=== PATIENT | female | born 1935 | race Caucasian/White ===

== ENCOUNTER 2018-11-22 09:00 | Inpatient (IN) | payer MEDICARE, BC ==
--- NOTE | 2019-05-17 18:40 | HP ---
PREOPERATIVE HISTORY AND PHYSICAL: DATE OF ADMISSION/SURGERY: 05/30/19 DATE OF OFFICE VISIT: 05/17/19 ATTENDING PHYSICIAN: Dr. Eden Arboleda * (DICTATED BY PETRA BEVERLY) PROCEDURE SCHEDULED: Left total knee arthroplasty. CHIEF COMPLAINT: Left knee pain. HISTORY OF PRESENT ILLNESS: Ms. Zimmerman is an 83-year-old female, who has a history of over 4 years of left knee pain. It has become severe and she cannot walk more than a block. She has difficulty with stair climbing, prolonged standing. She has tried rest, anti-inflammatories, physical therapy, and cortisone injections. She has failed conservative management and elects to proceed with surgery. PAST MEDICAL HISTORY: Significant for rheumatoid arthritis, asthma, high cholesterol, osteoarthritis, solitary lung nodule, anxiety. PAST SURGICAL HISTORY: Tubal ligation, appendectomy, vaginal mesh surgery. CURRENT MEDICATIONS: 1. Prednisone four 1 mg tablets once daily. 2. Actemra infusion 400 mg/20 mL IV infusion every 4 weeks. 3. Folic acid 1 mg by mouth daily. 4. [place] 5/325 one to two tablets 3 to 4 times daily for chronic pain. 5. Omeprazole 20 mg p.o. daily as needed for GERD. 6. Hydrochlorothiazide 25 mg one-half tablet by mouth daily. 7. Ramipril 10 mg 1 p.o. q.h.s. 8. Flaxseed oil 1000 mg 1 p.o. daily. 9. Vitamin D 2000 units p.o. daily. 10. Clobetasol propionate cream 0.05% apply twice daily on affected area for no more than 2 weeks. 11. Triamcinolone acetonide cream 0.17% apply thin film twice daily. 12. Ponaris oil to nose as needed. 13. Amlodipine 5 mg 1 p.o. q.h.s. 14. Robitussin with codeine cough syrup as needed. 15. Fish oil supplement daily. 16. Methotrexate 2.5 mg 4 tablets by mouth every Wednesday, taking with 25 mg of Benadryl and famotidine half hour prior to methotrexate dosing. ALLERGIES: DUONEB caused eye itching, facial swelling, and heart palpitations; PENICILLIN with rash; ENBREL, reaction urticaria; HUMIRA, reaction psoriatic rash; PLAQUENIL, reaction urticaria; GABAPENTIN, throat swelling; TIZANIDINE, blurred vision. FAMILY HISTORY: Mother with a history of diabetes and cancer. Father with a history of TB. SOCIAL HISTORY: The patient lives alone. She is retired. She smoked briefly in the 1980s. She does not use alcohol or recreational drugs. REVIEW OF SYSTEMS: She denies recent loss of consciousness, lightheadedness, dizziness, shortness of breath, chest pain, or palpitations. Denies gastrointestinal or genitourinary discomfort. Positive for right shoulder pain and chronic back pain. PHYSICAL EXAMINATION GENERAL: Well-developed, well-nourished 83-year-old female, in no acute distress, alert and oriented x3, pleasant and cooperative. VITAL SIGNS: Height 5 feet 1 inch tall, weight 120. Pulse 56, BP 140/80. HEENT: PERRLA. EOMI. LUNGS: Clear to auscultation without wheeze. HEART: Regular rate and rhythm. No murmur auscultated. ABDOMEN: Nontender, nondistended. Normoactive bowel sounds x4. MUSCULOSKELETAL: Left lower extremity: Her skin is intact without abrasions or open wounds. She has a gvau-sx-asmorhod effusion today with varus deformity. There is tenderness along the medial and lateral joint line. Her motion is limited to 15 degrees to 100 degrees of flexion today with noted patellofemoral crepitus. There is no varus or valgus instability. She has active dorsiflexion of the left ankle. She has full sensation to light touch. She has a 2+ dorsalis pedis pulse. DIAGNOSTIC STUDIES: Studies of the left knee plain films reveal endstage osteoarthritis of the left with knud-ec-onav contact medially. There is osteophyte formation and subchondral sclerosis noted. IMPRESSION: Advanced osteoarthritis, left knee. PLAN: The patient is scheduled to proceed with left total knee arthroplasty on 05/30/[address] Arboleda. She states she has seen Dr. Pierson, who will also follow her postoperatively on 05/16/19 for preoperative medical clearance. She is scheduled to have cortisone injections in her spine done by Dr. Molina in the near future. She will follow up in the office 10 to 14 days postoperatively. Risks and benefits of her procedure were fully discussed by Dr. Arboleda at her office visit today, 05/17/19. All questions were answered. PETRA BEVERLY [id number]/[facility] #: [id number] [facility] CENTERDeborah
[2019-05-29] MEDS ORDERED: Buffered Lidocaine 1% SYRIN* 1 ML/SYRINGE INTRADERM ONE (10:53)
[2019-05-30] MEDS ORDERED: Tranexamic Acid 1,000 MG in NS 0.9% 50 ML* (outpatient use) IV SCH ×2
[2019-05-30] MEDS ORDERED: Gabapentin CAP(*) 300 MG PO ONE (06:00)
[2019-05-30] MEDS ORDERED: celeCOXIB CAP* 100 MG PO ONE (06:00)
[2019-05-30] MEDS ORDERED: Famotidine TAB* 20 MG PO ONE (06:00)
[2019-05-30] MEDS ORDERED: Lactated Ringers 1000 ML Bag* 1,000 ML IV SCH ×2 (06:00→13:00)
[2019-05-30] MEDS ORDERED: Acetaminophen TAB* 325 MG PO ONE (06:00)
[2019-05-30] MEDS ORDERED: Dexamethasone IV* 4 MG/ML 1 ML (4 MG) IV SLOW PU ONE (06:00)
[2019-05-30] MEDS ORDERED: Dexamethasone IV* 4 MG/ML 1 ML (4 MG) ONE (07:37)
[2019-05-30] MEDS ORDERED: Famotidine TAB* 20 MG ONE (07:38)
[2019-05-30] MEDS ORDERED: ceFAZolin 2 GM in NS PREMIX(*) 2 GM/100 ML BAG IVPB ONE (07:38)
[2019-05-30] MEDS ORDERED: celeCOXIB CAP* 100 MG ONE (07:38)
[2019-05-30] MEDS ORDERED: Gabapentin CAP(*) 300 MG ONE (07:38)
[2019-05-30] MEDS ORDERED: Acetaminophen TAB* 325 MG ONE ×2 (07:38→13:31)
[2019-05-30] MEDS ORDERED: Buffered Lidocaine 1% SYRIN* 1 ML/SYRINGE INTRADERM ONE (07:38)
[2019-05-30] MEDS ORDERED: Midazolam* 1 MG/ML 2 ML VIAL (2 MG) ONE (08:03)
[2019-05-30] MEDS ORDERED: fentaNYL* 50 MCG/ML 2 ML VIAL (100 MCG VIAL) ONE ×3 (08:03→14:27)
[2019-05-30] MEDS ORDERED: Propofol* 10 MG/ML 20 ML BTL ONE ×3 (08:03→11:51)
[2019-05-30] MEDS ORDERED: ROPIVACAINE 5 MG/ML 30 ML BTL (0.5%) ONE ×2 (09:02→09:32)
[2019-05-30] MEDS ORDERED: Lidocaine 1% MPF ** 5 ML VIAL ONE (09:32)
[2019-05-30] MEDS ORDERED: Naloxone* 0.4 MG/ML 1 ML VIAL IV PRN (09:36)
[2019-05-30] MEDS ORDERED: DiMENhydriNATE IV* 50 MG/ML VIAL IV PUSH PRN (09:36)
[2019-05-30] MEDS ORDERED: Ketorolac INJ* 30 MG/ML 1 ML VIAL IV PRN (09:36)
[2019-05-30] MEDS ORDERED: HYDROmorphone INJ1* 1 MG/ML SYRINGE IV PRN (09:36)
[2019-05-30] MEDS ORDERED: Acetaminophen TAB* 325 MG PO PRN (09:36)
[2019-05-30] MEDS ORDERED: Lidocaine 2% PF * 5 ML VIAL ONE (11:25)
[2019-05-30] MEDS ORDERED: diPHENhydraMINE IV* 50 MG/ML 1 ml VIAL (BENADRYL) IV PRN (12:56)
[2019-05-30] MEDS ORDERED: Cyclobenzaprine TAB* 10 MG PO PRN (12:56)
[2019-05-30] MEDS ORDERED: Ondansetron INJ* 2 MG/ML VIAL IV PRN (12:56)
[2019-05-30] MEDS ORDERED: Bisacodyl SUPP* 10 MG SUPP PR PRN (12:56)
[2019-05-30] MEDS ORDERED: Polyethylene Glycol 3350* 17 GM PACKET PO PRN (12:56)
[2019-05-30] MEDS ORDERED: Morphine 4 MG/ML VIAL (1 ml) 4 MG/ML VIAL IV PRN (12:56)
[2019-05-30] MEDS ORDERED: diPHENhydraMINE PO* 25 MG PO PRN (12:56)
[2019-05-30] MEDS ORDERED: Magnesium Hydroxide LIQ* 30 ML UDC PO PRN (12:56)
[2019-05-30] MEDS ORDERED: Acetaminophen TAB* 325 MG PO SCH (13:00)
[2019-05-30] MEDS ORDERED: Triamcinolone 0.025% OINT * 15 GM TUBE TOPICAL PRN (13:02)
[2019-05-30] MEDS ORDERED: Pantoprazole TAB * 40 MG TAB PO PRN (13:02)
[2019-05-30] MEDS ORDERED: Hydrocortisone 1% CREAM* 30 GM TUBE TOPICAL PRN (13:02)
[2019-05-30] MEDS ORDERED: oxyCODONE/Acetamin 5/325 MG* TAB PO PRN (13:05)
[2019-05-30] MEDS ORDERED: TOCILIZUMAB IV SCH (13:15)
[2019-05-30] MEDS ORDERED: Ketorolac INJ* 30 MG/ML 1 ML VIAL ONE (13:19)
[2019-05-30] MEDS ORDERED: Morphine 4 MG/ML VIAL (1 ml) 4 MG/ML VIAL ONE (13:35)
[2019-05-30] MEDS ORDERED: oxyCODONE/Acetamin 5/325 MG* TAB ONE ×2 (13:43→13:51)
[2019-05-30] MEDS: oxyCODONE/Acetamin 5/325 MG* TAB PO PRN ×2 (13:44→13:52)
[2019-05-30] MEDS: fentaNYL* 50 MCG/ML 2 ML VIAL (100 MCG VIAL) IV PRN ×2 (14:27→15:08)
[2019-05-30] MEDS ORDERED: Morphine INJ* 2 MG/ML 1 ML SYRINGE (TWO MG - NEW SYRINGE VERSION) IV PRN (15:44)
--- NOTE | 2019-05-30 16:18 | PN ---
Progress Note - Progress Note Date of Service: 05/30/19 - Post-op eval Note: Patient is resting comfortably in bed breathing easily with complaints of SOB, CP, or calf pain. Skin is warm. She is able to dorsi/plantar flex bilaterally with intact sensation and bilateral 2+ DP pulses. Continue PT and OOB with assist. We will monitor and appreciate medicines guidance.
[2019-05-30] MEDS: amLODIPine TAB* 5 MG PO SCH (17:13)
[2019-05-30] MEDS: Ramipril CAP* 10 MG PO SCH (17:13)
[2019-05-30] MEDS: Clindamycin 600 MG IVPREMIX(* 600 MG/50 ML SDV IV SCH (17:14)
[2019-05-30] MEDS: oxyCODONE TAB* 5 MG TAB PO PRN ×2 (17:14→22:16)
--- NOTE | 2019-05-30 18:44 | OP ---
Operative Report - Blank - Operative Report Date of Operation: 05/30/19 Note: Toni CHILDERS 1935 Date of Surgery: 05/30/19 Eden Arboleda MD Collector Of Port: Khai LAMBERT did help throughout the procedure with preparation of the knee, wound retraction, manipulation of the knee, and wound closure. Anesthesiologist: Floresita Kidd MD Anesthesia Type: Spinal Preoperative Diagnosis: Left severe degenerative osteoarthritis of the knee Postoperative Diagnosis: As above Procedure Performed: Left Total Knee Arthroplasty Tourniquet time: 49 minutes Complications: None Specimen: Bone and cartilage from the left knee joint sent to pathology. Hardware Used: Cemented Morris [employer] Nephew total knee hardware was used - For the femur a size 5 left narrow legion posterior stabilized femoral component, for the tibia a size 3 left raymond II tibial baseplate, for the insert a size 9mm 3 -4 posterior stabilized articular polyethylene insert, and for the patella a size 32 3-peg all poly patella. Brief History/Indication: Toni CHILDERS was known in clinic and had a history of severe left knee pain and swelling. She failed conservative treatment with anti- inflammatories, pain pills, intra-articular injections and physical therapy. She elected to undergo left total knee arthroplasty due to continued pain and decreased quality of life. Radiographs showed severe end stage osteoarthritis of the knee with bone on bone contact. Informed consent was obtained from the patient. She understood the risks of surgery included but were not limited to: bleeding, infection, damage to nearby structures, intraoperative fracture, nerve palsy, failure of the hardware, early loosening, knee stiffness or loss of motion, anesthesia complications, stroke, heart attack, blood clot and . She wished to proceed. Intra-Operative Findings: Intraoperatively the patient was noted to have severe loss of cartilage in all 3 compartments of the knee. Description of the Procedure: Toni CHILDERS was identified in the preanesthesia unit. Her left knee was marked as the correct operative side. Informed consent was signed and placed in the chart. The patient was taken to the operating room and placed under anesthesia without complication. A stahl catheter was placed. A tourniquet was placed on the left thigh. The left lower extremity was prepped and draped in the usual sterile fashion. Preoperative time-out was made to correctly identify the patient, side and site. Appropriate intraoperative antibiotics were given within one hour of incision. Tourniquet was inflated. A midline incision was made and carried sharply down to the extensor mechanism. A new 10 blade was used to make a standard medial parapatellar arthrotomy. The patella was subluxed laterally. Electrocautery was used to dissect soft tissue off the superomedial tibia to the midsagittal plane. The knee was flexed up. The anterior horn of the lateral meniscus and the ACL were sharply incised. A drill was used to enter the distal femur. The intramedullary distal femoral cutting guide was pinned on the distal femur. The oscillating saw was used to make the distal femoral cut. The external rotation guide was pinned on the distal femur and the distal femur was sized to a size 5. The size 5 multi-cutting jig was pinned on the distal femur. The oscillating saw was used to make the appropriate 4 chamfer cuts. Next the PCL was completely released. The extramedullary tibial cutting guide was pinned on the proximal tibia and the oscillating saw was used to make the proximal tibial cut perpendicular to the mechanical axis of the tibia. The bone was carefully removed. The knee was brought out into full extension. The spacer block was placed and had excellent fit with the knee in full extension. The medial and lateral ligaments were well balanced. The flexion and extension gaps were well balanced. The knee was flexed up. Lamina web applications developer was placed both medially and laterally. Any remaining meniscus was removed with electrocautery. Curved osteotome was used to remove any posterior osteophytes. The tibial tray and drop shelbi were placed and confirmed a satisfactory tibial cut. The size 5 left narrow femoral trial was impacted onto the distal femur. This trial had excellent fit and stability. The box for the posterior stabilized implant was prepared using a box cut osteotome and a reamer. Next a tibial tray trial and 9 mm insert trial was placed. The knee was taken through a range of motion and had full extension to 130 degrees of flexion. Patellofemoral tracking was satisfactory. The patella was inverted and sized to a size 32. Three peg holes were drilled through the size 32 drill guide. The trial patella was placed and the knee was taken through a range of motion. There was satisfactory patellofemoral tracking. All trials were removed. The tibia was subluxed anteriorly and sized to a size 3. The proximal tibial was prepared with a size 3 keel punch. All bony cut surfaces were irrigated with sterile saline and dried. Final implants were cemented into place starting with the tibia, followed by the femur, and last the patella. A 9 mm insert trial was placed and the knee was brought into full extension. Tourniquet was turned down and the knee was copiously irrigated with sterile saline. Electrocautery was used to obtain meticulous hemostasis. Once the cement had fully cured, the insert trial was removed. Any excess cement was removed from around the hardware and capsule. Final insert chosen was a 9 mm posterior stabilized Raymond II articular insert size 3-4. Stability of the insert was checked and noted to be stable. The extensor mechanism was closed using number 1 vicryls. The rest of the incision was closed in a layered fashion using 0 and 2-0 vicryls. The skin was closed using 3-0 nylon suture. Sterile xeroform, 4x4s and webril were used to cover the incision. Jeremy wrap and cold pack were used to cover the dressings. The patients anesthesia was reversed without difficulty. She was taken to the PACU in stable condition. Intended weight-bearing will be as tolerated.
[2019-05-30] MEDS: Docusate CAP* 100 MG PO SCH (20:50)
[2019-05-30] MEDS: traMADol TAB* 50 MG PO PRN (20:50)
[2019-05-30] MEDS: Magnesium Hydroxide LIQ* 30 ML UDC PO SCH (20:52)
[2019-05-30] MEDS: Acetaminophen TAB* 325 MG PO SCH (22:01)
[2019-05-31] MEDS: oxyCODONE TAB* 5 MG TAB PO PRN ×4 (02:43→17:28)
[2019-05-31] MEDS: Clindamycin 600 MG IVPREMIX(* 600 MG/50 ML SDV IV SCH ×2 (02:45→10:44)
[2019-05-31] MEDS: traMADol TAB* 50 MG PO PRN ×2 (04:49→12:33)
[2019-05-31] MEDS: Acetaminophen TAB* 325 MG PO SCH ×2 (06:20→14:12)
[2019-05-31 07:02] LABS: Hematocrit 35 % (35-47); Mean Platelet Volume 9.3 fL (7.4-10.4); Platelet Count 188 10^3/uL (150-450)
[2019-05-31 07:31] LABS: BUN/Creatinine Ratio 26.8 (8-20); Calcium 9.3 mg/dL (8.6-10.3); EGFR African American 95.1 (>60); EGFR Non-African American 78.6 (>60); Potassium 4.1 mmol/L (3.5-5.0)
--- NOTE | 2019-05-31 08:00 | PN ---
Subjective - Subjective Reason for Note: Progress Note History: Internal medicine/primary care consultation She has tolerated the left total knee arthroplasty. She states the pain is not as bad as her chronic back pain. She has had no problems from the surgery. Active Problems: Active Problems History of total knee arthroplasty (Acute) Z96.659 Coronary atherosclerosis (Chronic) I25.10 Essential hypertension (Chronic) I10 Osteoporosis (Chronic) M81.0 Rheumatoid arthritis (Chronic) M06.9 Rheumatoid lung disease (Chronic) M05.10 Right shoulder pain (Chronic) M25.511 Spinal stenosis (Chronic) M48.00 Current Medications: Current Medications Acetaminophen (Tylenol Tab*) 975 mg PO Q8HR [facility] Last Admin: 05/31/19 06:20 Dose: Not Given Amlodipine Besylate (Norvasc Tab*) 5 mg PO QPM [facility] Last Admin: 05/30/19 17:13 Dose: 5 mg Apixaban (Eliquis*) 2.5 mg PO BID [facility] Bisacodyl (Dulcolax Supp*) 10 mg RI DAILY PRN PRN Reason: constipation Cholecalciferol (Vitamin D Tab*) 2,000 units PO QAM [facility] Cyclobenzaprine HCl (Flexeril Tab*) 5 mg PO TID PRN PRN Reason: SPASMS Diphenhydramine HCl (Benadryl Iv*) 25 mg IV Q6H PRN PRN Reason: itching Diphenhydramine HCl (Benadryl Po*) 25 mg PO Q6H PRN PRN Reason: INSOMNIA Docusate Sodium (Colace Cap*) 100 mg PO BID [facility] Last Admin: 05/30/19 20:50 Dose: 100 mg Famotidine (Pepcid Tab*) 10 mg PO Sa@0830 [facility] Folic Acid (Folvite Tab*) 1 mg PO QAM [facility] Hydrochlorothiazide (Hydrodiuril Tab*) 12.5 mg PO QAM [facility] Hydrocortisone (Hytone Cream 1%*) 1 applic TOPICAL ONCE PRN PRN Reason: ITCHY SKIN RASH Stop: 05/31/19 13:01 Clindamycin HCl/Dextrose (Cleocin 600 Mg Ivpremix(*) Sdv) 600 mg in 50 mls @ 100 mls/hr IV Q8H [facility] Stop: 05/31/19 10:59 Last Admin: 05/31/19 02:45 Dose: 100 mls/hr Lactated Ringer's (Lactated Ringers 1000 Ml Bag*) 1,000 mls @ 100 mls/hr IV PER RATE [facility] Last Admin: 05/31/19 04:48 Dose: 100 mls/hr Tocilizumab 200 mg/Tocilizumab 240 mg/ Sodium Chloride 100 mls @ 100 mls/hr IVPB Q30D [facility] Lactulose (Lactulose*) 30 ml PO Q6H PRN PRN Reason: constipation Magnesium Hydroxide (Milk Of Magnesia Liq*) 30 ml PO BID [facility] Last Admin: 05/30/19 20:52 Dose: 30 ml Magnesium Hydroxide (Milk Of Magnesia Liq*) 30 ml PO Q6H PRN PRN Reason: constipation Methotrexate (Methotrexate Tab*) 10 mg PO SA [facility] Morphine Sulfate (Morphine Inj (Syringe))*) 2 mg IV Q2H PRN PRN Reason: PAIN - SEVERE Ondansetron HCl (Zofran Inj*) 4 mg IV Q6H PRN PRN Reason: nausea Oxycodone HCl (Roxycodone Tab*) 10 mg PO Q4H PRN PRN Reason: breakthru pain Last Admin: 05/31/19 06:23 Dose: 10 mg Oxycodone/Acetaminophen (Percocet 5/325 Tab*) 2 tab PO Q3H PRN PRN Reason: PAIN - MODERATE Oxycodone/Acetaminophen (Percocet 5/325 Tab*) 1 tab PO Q3H PRN PRN Reason: PAIN - MODERATE Pantoprazole Sodium (Protonix Tab*) 40 mg PO DAILY PRN PRN Reason: GERD Polyethylene Glycol/Electrolytes (Miralax*) 17 gm PO DAILY PRN PRN Reason: Constipation Prednisone (Deltasone Tab*) 4 mg PO QAM [facility] Ramipril (Altace Cap*) 10 mg PO QPM [facility] Last Admin: 05/30/19 17:13 Dose: 10 mg Tramadol HCl (Ultram*) 50 mg PO Q6H PRN PRN Reason: PAIN - MILD Last Admin: 05/31/19 04:49 Dose: 50 mg Triamcinolone Acetonide (Triamcinolone 0.025% Oint *) 1 applic TOPICAL DAILY PRN PRN Reason: SKIN RASH - Review of Systems Constitutional Symptoms: No: Fever Pulmonary: Negative: Cough, Wheezing, Respiratory Distress Cardiology: Negative: Chest Pain, Shortness of Breath, Palpitations, Swelling of Ankles Gastroenterology: Negative: Abdominal Pain, Nausea, Constipation Genital - Urinary: Positive: Other - She just had the stahl removed Neurology: Negative: Headache, Change in Vision, Dizziness, Unexplained Weakness Home Medications: Home Medications Medication Instructions Recorded Confirmed Type Hydrochlorothiazide TAB* 0.5 tab PO QAM 07/12/14 05/30/19 History [Hydrodiuril TAB*] Omeprazole CAP (NF) [Prilosec CAP*] 20 mg PO DAILY PRN 07/12/14 05/30/19 History Ramipril CAP* [Altace CAP*] 10 mg PO QPM 07/12/14 05/30/19 History Flaxseed Oil 1,000 mg PO QAM 08/07/15 05/30/19 History Triamcinolone 0.1% CREAM (NF) 1 applic TOPICAL DAILY PRN 12/09/15 05/30/19 History [Kenalog 0.1% Cream (NF)] Clobetasol Propionate/Emoll 1 applic TOPICAL DAILY PRN 04/14/16 05/26/19 History [Clobetasol Propionate E] Cholecalciferol TAB* [Vitamin D 2,000 unit PO QAM 04/28/16 05/30/19 History TAB*] Hydrocodone/Acetaminophen 2 tab PO Q6H PRN MDD 8 03/22/18 05/30/19 History [Hydrocodone/Acetaminophen 5-325 mg] amLODIPine TAB* [Norvasc 5 mg TAB*] 5 mg PO QPM 09/19/18 05/30/19 History Folic Acid TAB* [Folvite TAB*] 1 mg PO QAM 12/20/18 05/30/19 History Methotrexate TAB* 4 tab PO SA 12/20/18 05/30/19 History [place]-3 Fatty Acids/Fish Oil [Fish 1 each PO QAM 01/02/19 05/30/19 History Oil 1,000 mg Softgel] Panaris Oil 1 applic BOTH NARES DAILY PRN 01/02/19 05/30/19 History predniSONE TAB* [Deltasone 1 MG 4 tab PO QAM 01/17/19 05/30/19 History TAB*] Tocilizumab* [Actemra*] 440 mg IV Q30D 01/19/19 05/26/19 History Famotidine 10 mg PO SEE INSTRUCTIONS 05/17/19 05/30/19 History Hydrocortisone 1% CREAM* [Hytone 1 applic TOPICAL ONCE PRN 05/17/19 05/26/19 History Cream 1%*] diphenhydrAMINE HCl [Benadryl 25 mg PO SEE INSTRUCTIONS 05/17/19 05/30/19 History Allergy] Allergies: Allergies Allergy/AdvReac Type Severity Reaction Status Date / Time hydroxychloroquine Allergy Severe Swelling Verified 05/30/19 07:54 Of Face,Lips,& Throat ipratropium Allergy Severe Itching Verified 05/30/19 07:54 abatacept [From Orencia] Allergy Intermediate Edema Verified 05/30/19 07:54 adalimumab [From Humira] Allergy Intermediate Hives Verified 05/30/19 07:54 etanercept [From Enbrel] Allergy Intermediate Rash Verified 05/30/19 07:54 Penicillins Allergy Intermediate Rash Verified 05/30/19 07:54 gabapentin Allergy Swelling Verified 05/30/19 07:54 Of Face,Lips,& Throat tizanidine Allergy blurry Verified 05/30/19 07:54 vision tromethamine Allergy Rash Verified 05/30/19 07:54 albuterol AdvReac Tachycardia Verified 05/30/19 07:54 Objective - Vital Signs Vital Signs: Vital Signs 05/30/19 05/30/19 05/30/19 08:02 12:56 12:57 Temperature 97.9 F 96.8 F Pulse Rate 71 64 64 Respiratory 14 16 Rate Blood Pressure 175/91 145/85 (mmHg) O2 Sat by Pulse 99 94 96 Oximetry 05/30/19 05/30/19 05/30/19 13:00 13:05 13:10 Temperature Pulse Rate 77 65 60 Respiratory 18 18 16 Rate Blood Pressure 159/82 169/76 159/87 (mmHg) O2 Sat by Pulse 97 97 98 Oximetry 05/30/19 05/30/19 05/30/19 13:15 13:20 13:21 Temperature Pulse Rate 53 57 Respiratory 18 16 16 Rate Blood Pressure 177/78 167/90 (mmHg) O2 Sat by Pulse 99 98 Oximetry 05/30/19 05/30/19 05/30/19 13:26 13:30 13:31 Temperature Pulse Rate 68 54 Respiratory 19 18 22 Rate Blood Pressure 187/84 161/84 (mmHg) O2 Sat by Pulse 98 96 Oximetry 05/30/19 05/30/19 05/30/19 13:36 13:42 13:44 Temperature Pulse Rate 50 Respiratory 18 20 18 Rate Blood Pressure 175/77 (mmHg) O2 Sat by Pulse Oximetry 05/30/19 05/30/19 05/30/19 13:45 13:52 14:00 Temperature Pulse Rate 51 53 Respiratory 16 18 20 Rate Blood Pressure 181/87 (mmHg) O2 Sat by Pulse Oximetry 05/30/19 05/30/19 05/30/19 14:15 14:16 14:27 Temperature Pulse Rate 52 Respiratory 16 17 16 Rate Blood Pressure 170/72 (mmHg) O2 Sat by Pulse 98 Oximetry 05/30/19 05/30/19 05/30/19 14:30 14:45 15:00 Temperature Pulse Rate 49 53 48 Respiratory 13 18 15 Rate Blood Pressure 171/76 173/83 169/74 (mmHg) O2 Sat by Pulse 99 98 99 Oximetry 05/30/19 05/30/19 05/30/19 15:01 15:08 15:15 Temperature 98.6 F Pulse Rate 52 Respiratory 18 18 Rate Blood Pressure (mmHg) O2 Sat by Pulse 98 Oximetry 05/30/19 05/30/19 05/30/19 15:33 16:00 16:45 Temperature 97.5 F 97.9 F Pulse Rate 52 80 Respiratory 18 16 Rate Blood Pressure 171/65 132/64 (mmHg) O2 Sat by Pulse 96 96 97 Oximetry 05/30/19 05/30/19 05/30/19 17:14 17:38 18:43 Temperature 97.9 F 98.2 F Pulse Rate 53 57 Respiratory 18 16 16 Rate Blood Pressure 146/62 139/55 (mmHg) O2 Sat by Pulse 98 97 Oximetry 05/30/19 05/30/19 05/30/19 19:31 20:50 21:00 Temperature Pulse Rate Respiratory 16 16 16 Rate Blood Pressure (mmHg) O2 Sat by Pulse Oximetry 05/30/19 05/30/19 05/30/19 22:16 22:20 23:16 Temperature 98.0 F Pulse Rate 65 Respiratory 16 16 17 Rate Blood Pressure 133/59 (mmHg) O2 Sat by Pulse 95 Oximetry 05/31/19 05/31/19 05/31/19 00:16 02:43 02:53 Temperature Pulse Rate Respiratory 16 16 Rate Blood Pressure (mmHg) O2 Sat by Pulse 95 Oximetry 05/31/19 05/31/19 05/31/19 02:59 04:49 06:23 Temperature 98.3 F Pulse Rate 51 Respiratory 17 16 16 Rate Blood Pressure 146/58 (mmHg) O2 Sat by Pulse 98 Oximetry 05/31/19 07:35 Temperature 97.7 F Pulse Rate 56 Respiratory 16 Rate Blood Pressure 148/68 (mmHg) O2 Sat by Pulse 97 Oximetry - Intake and Output Intake and Output: Intake & Output 05/28/19 05/29/19 05/30/19 05/31/19 11:59 11:59 11:59 11:59 Intake Total 2860 Output Total 2100 Balance 760 Weight 118 lb Intake: IV Fluids 1800 lr 1800 Oral 1060 Output: Stahl 1950 Estimated Blood Loss 150 ADLs: Meal Record Start: 05/30/19 15: 33 Freq: Status: Active Protocol: Created 05/30/19 15:33 [id number] (Rec: 05/30/19 15:33 [id number]) Document 05/30/19 19:41 [id number] (Rec: 05/30/19 19:42 [id number]) Intake and Output Start: 05/30/19 12: 56 Freq: 06,14,2200 Status: Active Protocol: Created 05/30/19 13:06 [id number] (Rec: 05/30/19 13:06 [id number]) Document 05/31/19 05:17 [id number] (Rec: 05/31/19 05:17 [id number]) Intake and Output Start: 05/30/19 15: 33 Freq: DAILY@0600,1400,2200 Status: Active Protocol: Created 05/30/19 15:33 [id number] (Rec: 05/30/19 15:33 [id number]) Document 05/30/19 21:53 [id number] (Rec: 05/30/19 21:54 [id number]) Document 05/31/19 05:17 [id number] (Rec: 05/31/19 05:17 [id number]) - Physical Exam General Physical Exam Comment: Sitting in a chair with her breakfast, chatting to her daughter General: No Cyanosis, No Anemia, No Jaundice, No Clubbing Lungs and Chest: Yes: Chest Expansion Full, Chest Expansion Symetrica, Percussion Note Resonant, Vessicular Breath Sounds. No: Crackles, Wheezes Heart Rate and Rhythm: Regular Additional Cardiovascular: Yes: Normal Heart Sounds. No: Heart Murmur, Pedal Edema Abdominal Exam: Yes: Soft, Bowel Sounds Present. No: Distention, Hepatomegaly, Abdominal Tenderness - Extremities Cranial Nerves II-XII Intact: Yes Limbs: Normal Power Results - Results Lab Results: Laboratory Results - last 24 hr 05/31/19 05/31/19 06:42 06:45 Hgb 12.0 Hct 35 Plt Count 188 MPV 9.3 Sodium 138 Potassium 4.1 Chloride 109 Carbon Dioxide 25 Anion Gap 4 BUN 19 Creatinine 0.71 Est GFR ( Amer) 95.1 Est GFR (Non-Af Amer) 78.6 BUN/Creatinine Ratio 26.8 H Glucose 112 H Calcium 9.3 Assessment - Problem List Assessment: Patient Problems History of total knee arthroplasty (Acute) Coronary atherosclerosis (Chronic) Essential hypertension (Chronic) Osteoporosis (Chronic) Rheumatoid arthritis (Chronic) Rheumatoid lung disease (Chronic) Right shoulder pain (Chronic) Spinal stenosis (Chronic) Plan: History of total knee arthroplasty (Acute) 1 day post operative - she is recovering well. She would like to go directly home. OT/PT to mobilize. Choice of anticoagulation vs aspirin per Dr. Adelia Arboleda. She is medically stable Secondary diagnoses Coronary atherosclerosis (Chronic) Essential hypertension (Chronic) Osteoporosis (Chronic) Rheumatoid arthritis (Chronic) Rheumatoid lung disease (Chronic) Right shoulder pain (Chronic) Spinal stenosis (Chronic) Rehabilitation is complicated by her rheumatoid arthritis, chronic severe back pain and right shoulder pain. She has a strong attitude towards discharge home, however OT/PT should assess whether this is safe. She needs to be independent and able to do all ADLs. She requires ongoing pain management with hydrocodone - we have had long discussions re: coming of opioids when her pain is controlled.
[2019-05-31] MEDS: Docusate CAP* 100 MG PO SCH (08:14)
[2019-05-31] MEDS: Magnesium Hydroxide LIQ* 30 ML UDC PO SCH (08:15)
[2019-05-31] MEDS: oxyCODONE/Acetamin 5/325 MG* TAB PO PRN ×2 (08:48→15:08)
[2019-05-31] MEDS ORDERED: Cholecalciferol TAB* 1000 UNITS PO SCH (09:00)
[2019-05-31] MEDS ORDERED: predniSONE TAB* 1 MG PO SCH (09:00)
[2019-05-31] MEDS ORDERED: Hydrochlorothiazide TAB* 25 MG PO SCH (09:00)
[2019-05-31] MEDS ORDERED: Folic Acid TAB* 1 MG PO SCH (09:00)
[2019-05-31] MEDS ORDERED: Apixaban* 2.5 MG TAB PO SCH (09:00)
--- NOTE | 2019-05-31 13:44 | PN ---
Progress Note - Progress Note Date of Service: 05/31/19 SOAP: Subjective: [] Patient was seen and examined at bedside. She feels very well, her left knee pain is well controlled. Denies CP, SOB, dizziness, nausea. Objective: []Gen: Appears well, NAD LLE: Left knee dressing CDI, thigh soft, DF/PF intact, DP2+, sensation intact to light touch distally. Calves supple and nontender Assessment: []POD 1 SP LTK Plan: []WBAT PT/OT eliquis 2.5 mg po BID x 30 days post op Vital Signs Temp 98 F 05/31/19 11:47 Pulse 53 05/31/19 11:47 Resp 18 05/31/19 12:33 BP 154/61 05/31/19 11:47 Pulse Ox 96 05/31/19 11:47 Intake & Output 05/30/19 05/31/19 05/31/19 18:59 06:59 18:59 Intake Total 1800 1060 743 Output Total 1000 1100 400 Balance 800 -40 343 Weight 118 lb Intake: IV Fluids 1800 623 ABX - CLINDAMYCIN 60 LR 563 lr 1800 Oral 1060 120 Output: Urine 400 Vargas 850 1100 Estimated Blood Loss 150 Laboratory Last Values Hgb 12.0 g/dL (12.0-16.0) 05/31/19 06:45 Hct 35 % (35-47) 05/31/19 06:45 Plt Count 188 10^3/uL (150-450) 05/31/19 06:45 MPV 9.3 fL (7.4-10.4) 05/31/19 06:45 Sodium 138 mmol/L (135-145) 05/31/19 06:42 Potassium 4.1 mmol/L (3.5-5.0) 05/31/19 06:42 Chloride 109 mmol/L (101-111) 05/31/19 06:42 Carbon Dioxide 25 mmol/L (22-32) 05/31/19 06:42 Anion Gap 4 mmol/L (2-11) 05/31/19 06:42 BUN 19 mg/dL (6-24) 05/31/19 06:42 Creatinine 0.71 mg/dL (0.51-0.95) 05/31/19 06:42 Est GFR ( Amer) 95.1 (>60) 05/31/19 06:42 Est GFR (Non-Af Amer) 78.6 (>60) 05/31/19 06:42 BUN/Creatinine Ratio 26.8 (8-20) H 05/31/19 06:42 Glucose 112 mg/dL (70-100) H 05/31/19 06:42 Calcium 9.3 mg/dL (8.6-10.3) 05/31/19 06:42
[2019-05-31 15:50] VITALS: BP 143/71
--- NOTE | 2019-05-31 16:08 | DS ---
Orthopedic Discharge Summary - Discharge Summary Date of Admission:05/30/19 Date of Discharge: 05/29/19 Date of Surgery: 05/30/19 Attending Orthopedic Provider: Dr Arboleda Pre-operative Diagnosis: left knee osteoarthritis Operative Procedure: left total knee replacement Disposition of Patient: home with vns Condition of Patient: stable History: Toni CHILDERS is a 83 year old F with years of increasingly severe left knee pain. Patient has failed conservative management and has elected to undergo a left total knee replacement Hospital Course: Toni was admitted to [facility] on 05/30/19. Patient underwent a left total knee replacement without complication followed by a brief recovery in PACU and transfer to the Short Stay Surgical Unit in stable condition. Dr Pierson, physical therapy and occupational therapy also participated in this patients care. Post-op day 1: patient was alert and in no acute distress. Dressing was clean, dry and intact. Operative extremity dorsiflexion and plantarflexion intact, sensation intact to light touch distally, DP2+. dressing was changed, incision was clean, dry and intact. Patient was deemed to be medically and orthopedically stable for discharge, she strongly desires DC to home and has 5 children to help her. Physical therapy and occupational therapy goals were met. Home Medications Medication Instructions Recorded Confirmed Type Hydrochlorothiazide TAB* 0.5 tab PO QAM 07/12/14 05/30/19 History [Hydrodiuril TAB*] Omeprazole CAP (NF) [Prilosec CAP* 20 mg PO DAILY PRN 07/12/14 05/30/19 History 20 MG] Ramipril CAP* [Altace CAP*] 10 mg PO QPM 07/12/14 05/30/19 History Flaxseed Oil 1,000 mg PO QAM 08/07/15 05/30/19 History Triamcinolone 0.1% CREAM (NF) 1 applic TOPICAL DAILY PRN 12/09/15 05/30/19 History [Kenalog 0.1% Cream (NF)] Clobetasol Propionate/Emoll 1 applic TOPICAL DAILY PRN 04/14/16 05/26/19 History [Clobetasol Emollient 0.05% Crm] Cholecalciferol TAB* [Vitamin D 2,000 unit PO QAM 04/28/16 05/30/19 History TAB*] amLODIPine TAB* [Norvasc 5 mg TAB*] 5 mg PO QPM 09/19/18 05/30/19 History Folic Acid TAB* [Folvite TAB*] 1 mg PO QAM 12/20/18 05/30/19 History Methotrexate TAB* 4 tab PO SA 12/20/18 05/30/19 History Vaughn-3 Fatty Acids/Fish Oil [Fish 1 each PO QAM 01/02/19 05/30/19 History Oil 1,000 mg Softgel] Panaris Oil 1 applic BOTH NARES DAILY PRN 01/02/19 05/30/19 History predniSONE TAB* [Deltasone 1 MG 4 tab PO QAM 01/17/19 05/30/19 History TAB*] Tocilizumab* [Actemra*] 440 mg IV Q30D 01/19/19 05/26/19 History Famotidine 10 mg PO SEE INSTRUCTIONS 05/17/19 05/30/19 History Hydrocortisone 1% CREAM* [Hytone 1 applic TOPICAL ONCE PRN 05/17/19 05/26/19 History Cream 1%*] diphenhydrAMINE HCl [Benadryl 25 mg PO SEE INSTRUCTIONS 05/17/19 05/30/19 History Allergy] Acetaminophen TAB* [Tylenol TAB*] 975 mg PO Q8HR tab 05/31/19 Rx Apixaban* [Eliquis*] 2.5 mg PO BID #60 tab 05/31/19 Rx Docusate CAP* [Colace Cap*] 100 mg PO BID #90 cap 05/31/19 Rx oxyCODONE TAB* [Roxycodone TAB 5 10 mg PO Q4H PRN #70 tab MDD 10 05/31/19 Rx mg*] Discharge Instructions following Orthopedic Surgery: Activity: * Weight Bearing as tolerated * Continue physical therapy and occupational therapy exercises as shown * Home PT Wound care: * OK to shower on post-op day 3, no bathing, swimming, or submerging wound. * Use gentle soap, pat dry. Cover with gauze, NELSON wrap or tape. * Visiting home nurse to do wound checks. Call Orthopedic office for: * Increased drainage * Redness * Increased pain * Fever Go to ER with shortness of breath or chest pain. Diet: * Regular diet * Increase fluids and fiber to prevent constipation. * Continue to use stool softeners, call office if no bowel motion within 48 hours. Medications See Home Medication List in your packet for medications that you should take after discharge. DVT Prophylaxis: Eliquis Dosin.5 mg, 1 tab every 12 hours x 30 days. Increases bleeding tendency Pain Control: oxycodone Dosin mg 1 tab for moderate and 2 tabs for severe pain by mouth every 4 hours as needed for pain. Maximum of 10 tabs per day. Hold for sedation, wean off as soon as pain allows Antibiotics are required prior to any dental work. FOLLOW UP: Follow up with Dr. Christensen ] Within 10-14 days, call for appointment Please call our office with any questions or concerns ([phone]) RX to malick Persaud
[2019-05-31] MEDS: amLODIPine TAB* 5 MG PO SCH (17:29)
[2019-05-31] MEDS: Ramipril CAP* 10 MG PO SCH (17:29)
[2019-06-03] MEDS ORDERED: Famotidine TAB* 20 MG PO SCH (08:30)
[2019-06-03] MEDS ORDERED: Methotrexate TAB* 2.5 MG PO SCH (09:00)
[2019-06-20] MEDS ORDERED: NS 0.9% IVPB SCH ×4 (09:00)
[2019-06-20] MEDS ORDERED: TOCILIZUMAB IVPB SCH ×4 (09:00)
== END 2019-05-31 19:35 | disposition home health service (06) | DRG 470 ==
LOC: AA 05-30 07:07 → SSU 05-30 15:27
PROVIDERS: ADMIT Orthopaedic Surgery Adult Reconstructive Orthopaedic Surgery; ATTEND Orthopaedic Surgery Adult Reconstructive Orthopaedic Surgery
PROC: 0SRD0J9 Replacement of Left Knee Joint with Synthetic Substitute, Cemented, Open Approach (ICD-10-PCS; principal; 2019-05-30 10:00)
DX: M17.12 Unilateral primary osteoarthritis, left knee (principal); M06.9 Rheumatoid arthritis, unspecified; J45.909 Unspecified asthma, uncomplicated; E78.00 Pure hypercholesterolemia, unspecified; M19.90 Unspecified osteoarthritis, unspecified site; R91.1 Solitary pulmonary nodule; M25.511 Pain in right shoulder; M54.9 Dorsalgia, unspecified; M25.462 Effusion, left knee; M21.162 Varus deformity, not elsewhere classified, left knee; M25.762 Osteophyte, left knee; E21.0 Primary hyperparathyroidism; F41.1 Generalized anxiety disorder; F32.9 Major depressive disorder, single episode, unspecified; G89.4 Chronic pain syndrome; I10 Essential (primary) hypertension; M05.10 Rheumatoid lung disease with rheumatoid arthritis of unspecified site; M81.0 Age-related osteoporosis without current pathological fracture; M48.00 Spinal stenosis, site unspecified; K21.9 Gastro-esophageal reflux disease without esophagitis; Z66 Do not resuscitate; G62.9 Polyneuropathy, unspecified; I25.10 Atherosclerotic heart disease of native coronary artery without angina pectoris; L40.9 Psoriasis, unspecified; Z82.49 Family history of ischemic heart disease and other diseases of the circulatory system; Z79.52 Long term (current) use of systemic steroids; Z98.51 Tubal ligation status; Z88.8 Allergy status to other drugs, medicaments and biological substances; Z88.0 Allergy status to penicillin; Z83.3 Family history of diabetes mellitus; Z80.9 Family history of malignant neoplasm, unspecified; Z83.1 Family history of other infectious and parasitic diseases; Z87.891 Personal history of nicotine dependence; Z80.3 Family history of malignant neoplasm of breast; Z82.5 Family history of asthma and other chronic lower respiratory diseases; Z83.49 Family history of other endocrine, nutritional and metabolic diseases; Z98.42 Cataract extraction status, left eye; Z98.41 Cataract extraction status, right eye; Z90.710 Acquired absence of both cervix and uterus; Z85.828 Personal history of other malignant neoplasm of skin
CPT/HCPCS: 36415; 80048; 85014; 85018; 85049; 88305; 88311; A9270-GY; C1776; G8978-GP-CM; G8979-GP-CI; J0690; J1100; J1885; J2250; J2270; J2704; J2795; J3010